=== PATIENT | male | born 1965 | race Two or more races ===

== ENCOUNTER 2016-10-04 20:10 | Emergency (ER) | payer OTHER | END 2016-10-04 21:14 | disposition home or self-care (01) | LOC: ED 20:10 | DX: S29.012A Strain of muscle and tendon of back wall of thorax, initial encounter (principal); S39.012A Strain of muscle, fascia and tendon of lower back, initial encounter; E66.9 Obesity, unspecified; V43.52XA Car driver injured in collision with other type car in traffic accident, initial encounter; Y92.410 Unspecified street and highway as the place of occurrence of the external cause ==